=== PATIENT | female | born 1985 | race Caucasian/White ===

== ENCOUNTER 2017-11-01 07:43 | Emergency (ER) | payer MEDICAID ==
--- NOTE | 2017-11-01 07:50 | ED Physician Documentation ---
PD HPI FEMALE - Stated complaint Stated Complaint: 9 WKS PREG/BLEEDING - History obtained from History obtained from: Patient - History of Present Illness Timing - onset: Today Timing - details: Abrupt onset, Still present, Waxing and waning (having some spotting of pink fluid and mild lower abd cramps this morning.) Associated symptoms: Pelvic pain, Vaginal bleeding. No: Fever, Vaginal discharge, Genital sore/lesion, Dysuria, Urinary frequency Contributing factors: (9 weeks by dates). 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 denies: Vomiting, Diarrhea : reports: Vaginal bleeding. denies: Dysuria, Frequency, Discharge Skin: denies: Rash Neurologic: denies: Generalized weakness, Near syncope PD PAST MEDICAL HISTORY - Past Medical History Cardiovascular: None Respiratory: None Neuro: None - Present Medications Home Medications: Ambulatory Orders Medication Instructions Recorded Confirmed Cephalexin [Keflex] 500 mg PO TID #15 capsule 11/01/17 Ondansetron Odt [Zofran] 4 mg TL Q6H PRN #15 tablet 11/01/17 - Allergies Allergies/Adverse Reactions: Allergies Allergy/AdvReac Type Severity Reaction Status Date / Time Penicillins Allergy Unknown Verified 11/01/17 07:49 PD ED PE NORMAL - Vitals Vital signs reviewed: Yes - General General: Alert and oriented X 3, No acute distress, Well developed/nourished - HEENT HEENT: Pharynx benign - Neck Neck: Supple, no meningeal sign, No adenopathy - Cardiac Cardiac: RRR, No murmur - Respiratory Respiratory: Clear bilaterally - Abdomen Abdomen: Normal bowel sounds, Soft, Non distended, No organomegaly, Other (mild suprapubic tenderness) - Female Female : Deferred - Rectal Rectal: Deferred - Back Back: No CVA TTP - Derm Derm: Normal color, Warm and dry - Neuro Neuro: Alert and oriented X 3, No motor deficit, Normal speech Results - Vitals Vitals: Oxygen O2 Source Room air - Labs Labs: Microbiology 11/01/17 07:58 Urine Culture - Final Urine,Clean Catch No growth Laboratory Tests 11/01/17 07:58 Urine Color YELLOW Urine Clarity CLEAR Urine pH 8.0 H Ur Specific [place] 1.010 Urine Protein NEGATIVE Urine Glucose (UA) NEGATIVE Urine Ketones NEGATIVE Urine Occult Blood LARGE H Urine Nitrite NEGATIVE Urine Bilirubin NEGATIVE Urine Urobilinogen 0.2 (NORMAL) Ur Leukocyte Esterase TRACE H Urine RBC 0-5 Urine WBC 0-3 Ur Squamous Epith Cells FEW Squamous Urine Bacteria Few Ur Microscopic Review INDICATED Urine Culture Comments INDICATED Procedures - Bedside sono Bedside sono by EMP: Pelvic transabd US showing IUP with GS 9 weeks size. No free fluid. PD MEDICAL DECISION MAKING - ED course Complexity details: considered differential (IUP verified by bedside U/S with GS size c/w dates. ), d/w patient - Sepsis Event Vital Signs: Oxygen O2 Source Room air Departure - Departure Disposition: 01 Home, Self Care Clinical Impression: Early stage of , Vaginal spotting Condition: Stable Record reviewed to determine appropriate education?: Yes Instructions: Bleeding Early Preg Prescriptions: Cephalexin [Keflex] 500 mg PO TID #15 capsule Ondansetron Odt [Zofran] 4 mg TL Q6H PRN #15 tablet PRN Reason: Nausea / Vomiting Comments: Drink lots of fluids. Your urine is suggestive of a mild bladder infection. Will treat it with some medications pending the culture. If that comes back negative we can discontinue the medication. Tylenol if needed for cramps or pains. Discharge Date/Time: 11/01/17 09:05
[2017-11-01 08:08] LABS: BILIRUBIN,URINE NEGATIVE (NEGATIVE); GLUCOSE, URINE (UA) NEGATIVE (NEGATIVE); KETONES,URINE (UA) NEGATIVE (NEGATIVE); LEUKOCYTE ESTERASE, URINE TRACE (NEGATIVE); NITRITE,URINE NEGATIVE (NEGATIVE); OCCULT BLOOD,URINE LARGE (NEGATIVE); PROTEIN,URINE NEGATIVE (NEGATIVE); UROBILINOGEN,URINE 0.2 (NORMAL) E.U./dL (NORMAL)
[2017-11-01 08:13] LABS: CLARITY,URINE CLEAR (CLEAR)
[2017-11-01 08:21] LABS: BACTERIA,URINE Few /HPF (None Seen); RBC,URINE 0-5 /HPF (0-5); SQUAMOUS EPITHELIAL CELL,UR FEW Squamous (<= Few)
[2017-11-01] MEDS ORDERED: cephALEXin 250 MG CAPSULE PO STA (08:43)
[2017-11-01 09:06] VITALS: BP 132/86
== END 2017-11-01 09:05 | disposition home or self-care (01) ==
LOC: ED 07:43
DX: O26.851 Spotting complicating pregnancy, first trimester (principal); Z3A.09 9 weeks gestation of pregnancy; R11.0 Nausea
CPT/HCPCS: 81001; 87086; 99283; A9270; 81003

== ENCOUNTER 2017-11-04 08:00 | Outpatient (CLI) | payer MEDICAID ==
[2017-11-04 17:51] LABS: MUDS CUTOFF CONCENTRATIONS CUTOFF CONC BELOW:
[2017-11-04 18:19] LABS: AMPHETAMINE SCREEN,URINE NEGATIVE (NEGATIVE); BENZODIAZEPINES SCREEN, URINE NEGATIVE (NEGATIVE); COCAINE SCREEN URINE NEGATIVE (NEGATIVE); METHADONE SCREEN, URINE NEGATIVE (NEGATIVE); METHAMPHETAMINES SCREEN, URINE NEGATIVE (NEGATIVE); OPIATE SCREEN, URINE NEGATIVE (NEGATIVE); OXYCODONE SCREEN, URINE NEGATIVE (NEGATIVE); PROPOXYPHENE SCREEN, URINE NEGATIVE (NEGATIVE); TRICYCLIC ANTIDEPRESSANT,URINE NEGATIVE (NEGATIVE)
== END 2017-11-04 08:01 ==
LOC: LAB.R 08:00
PROVIDERS: ATTEND Nurse Practitioner Obstetrics & Gynecology
DX: Z36.9 Encounter for antenatal screening, unspecified (principal)
CPT/HCPCS: 80306

== ENCOUNTER 2017-11-18 08:00 | Outpatient (CLI) | payer MEDICAID ==
[2017-11-18 12:40] LABS: BASOPHILS % (AUTO) 0.3 %; EOSINOPHILS # (AUTO) 0.1 10^3/uL (0.0-0.7); EOSINOPHILS % (AUTO) 0.9 %; HGB - HEMOGLOBIN 12.6 g/dL (12.0-16.0); LYMPHOCYTES # (AUTO) 1.9 10^3/uL (1.5-3.5); LYMPHOCYTES % (AUTO) 24.3 %; MEAN CORPUSCULAR HGB CONC 32.8 g/dL (32.0-36.0); MEAN CORPUSCULAR VOLUME 88.3 fL (81.0-99.0); MEAN PLATELET VOLUME 8.1 fL (7.9-10.8); MONOCYTES # (AUTO) 0.8 10^3/uL (0.0-1.0); MONOCYTES % (AUTO) 10.6 %; NEUTROPHILS # (AUTO) 4.9 10^3/uL (1.5-6.6); NEUTROPHILS % (AUTO) 63.9 %; PLT - PLATELET COUNT 380 10^3/uL (130-450); RED BLOOD COUNT 4.36 10^6/uL (4.20-5.40); RED CELL DISTRIBUTION WIDTH 13.8 % (12.0-15.0); WHITE BLOOD COUNT 7.7 x10^3/uL (4.8-10.8)
[2017-11-18 13:31] LABS: BILIRUBIN,URINE NEGATIVE (NEGATIVE); GLUCOSE, URINE (UA) NEGATIVE (NEGATIVE); KETONES,URINE (UA) NEGATIVE (NEGATIVE); LEUKOCYTE ESTERASE, URINE NEGATIVE (NEGATIVE); NITRITE,URINE NEGATIVE (NEGATIVE); OCCULT BLOOD,URINE NEGATIVE (NEGATIVE); PH,URINE 5.5 PH (5.0-7.5); PROTEIN,URINE NEGATIVE (NEGATIVE); UROBILINOGEN,URINE 0.2 (NORMAL) E.U./dL (NORMAL)
[2017-11-18 13:35] LABS: CLARITY,URINE CLOUDY (CLEAR)
[2017-11-18 13:51] LABS: BACTERIA,URINE Rare /HPF (None Seen); RBC,URINE 0-5 /HPF (0-5); SQUAMOUS EPITHELIAL CELL,UR FEW Squamous (<= Few)
[2017-11-19 11:26] LABS: HEPATITIS B SURFACE ANTIGEN NON-REACTIVE (NON-REACTIVE); HEPATITIS C ANTIBODY NON-REACTIVE (NON-REACTIVE)
[2017-11-19 14:01] LABS: HIV AG/AB 4TH GEN NON-REACTIVE (NON-REACTIVE)
== END 2017-11-18 08:01 | disposition home or self-care (01) ==
LOC: LAB.N 08:00
PROVIDERS: ATTEND Nurse Practitioner Obstetrics & Gynecology
DX: Z36.9 Encounter for antenatal screening, unspecified (principal)
CPT/HCPCS: 36415; 81001; 81599; 85025; 86592; 86762; 86803; 86850; 86900; 86901; 87340; 87389

== ENCOUNTER 2017-12-03 10:40 | Outpatient (CLI) | payer MEDICAID ==
[2017-12-03 12:44] LABS: HB2 TOTAL 13.1 g/dL; HEMOGLOBIN A1C 0.39 g/dL; HEMOGLOBIN A1C % 4.9 % (4.6-6.2)
== END 2017-12-03 10:41 | disposition home or self-care (01) ==
LOC: LAB.N 10:40
PROVIDERS: ATTEND Registered Nurse
DX: O99.211 Obesity complicating pregnancy, first trimester (principal)
CPT/HCPCS: 36415; 82950; 83036

== ENCOUNTER 2018-02-02 07:30 | Outpatient (CLI) | payer MEDICAID ==
--- NOTE | 2018-02-02 15:50 | Ultrasound Report ---
Reason: ENCOUNTER FOR SCREENING, UNSPECIFIED Procedure Date: 02/02/2018 Accession Number: [id number] / [id number] Procedure: US - OB Detailed Eval CPT Code: FULL RESULT: EXAM: COMPLETE OBSTETRICAL ULTRASOUND EXAM DATE: 02/02/2018 10:50 AM. CLINICAL HISTORY: anatomic survey. COMPARISON: None. TECHNIQUE: Real-time sonographic evaluation of the fetus performed by the manager cafe. Multiple quality assurance representative static images were saved for review. Additional transvaginal imaging to more accurately evaluate cervical length/placental position/etc. DATING: Established EGA 19 weeks 6 days with HAILE 06/23/2018 based on assigned dating. EGA 20 weeks 4 days with HAILE 06/18/2018 based on the current ultrasound. GENERAL EVALUATION Sharif . Cardiac activity: 147 bpm. movement: Visualized. Presentation: Variable Placenta: Anterior position. No evidence for previa. Umbilical cord: 3 vessel cord not well seen Central placental cord origin. Amniotic fluid: 14.4 l. MVP 4.9 cm. BIOMETRY Bi-Parietal Diameter (BPD): 4.7 cm, 20 weeks/2 days Head Circumference (HC): 17.7 cm, 20 weeks/1 days Abdominal Circumference (AC): 16.7 cm, 21 weeks/5 days Femur Length (FL): 3.2 cm, 20 weeks/1 days Estimated Weight: 388 gm, 93 percentile for 19 weeks 6 days ANATOMY The intracranial structures, profile, face/nose/lips, spine, , stomach, abdominal wall and cord insertion, diaphragm, kidneys, bladder, and extremities were visualized and demonstrate no abnormality. The three-vessel cord and cardiac anatomy is not well seen. MATERNAL STRUCTURES Uterus: Anterior 5.2 x 3.5 x 3.5 cm fibroid Cervix: Long and closed. Transabdominal length 4.2 cm. Right ovary/adnexa: Unremarkable. Left ovary/adnexa: Unremarkable. Free fluid: None. IMPRESSION: 1. Sharif live intrauterine with gestational age 19 weeks/6 days based on stated dating. 2. Estimated weight is within expected limits for assigned dating 93rd percentile. 3. Three-vessel cord and cardiac anatomy not well seen. Follow-up in 2-3 weeks . Otherwise unremarkable anatomic survey. 4. Anterior 5.2 x 3.5 x 3.5 cm fibroid RADIA
== END 2018-02-02 07:31 | disposition home or self-care (01) ==
LOC: DI 07:30
PROVIDERS: ATTEND Nurse Practitioner Obstetrics & Gynecology
DX: Z36.9 Encounter for antenatal screening, unspecified (principal); O34.12 Maternal care for benign tumor of corpus uteri, second trimester; D25.9 Leiomyoma of uterus, unspecified; Z3A.19 19 weeks gestation of pregnancy
CPT/HCPCS: 76811

== ENCOUNTER 2018-02-25 10:34 | Outpatient (CLI) | payer MEDICAID ==
[2018-02-25 18:58] LABS: BASOPHILS % (AUTO) 0.4 %; EOSINOPHILS % (AUTO) 0.6 %; HGB - HEMOGLOBIN 12.5 g/dL (12.0-16.0); LYMPHOCYTES # (AUTO) 1.4 10^3/uL (1.5-3.5); LYMPHOCYTES % (AUTO) 17.3 %; MEAN CORPUSCULAR HEMOGLOBIN 28.7 pg (27.0-31.0); MEAN CORPUSCULAR HGB CONC 32.9 g/dL (32.0-36.0); MEAN PLATELET VOLUME 7.9 fL (7.9-10.8); MONOCYTES # (AUTO) 0.4 10^3/uL (0.0-1.0); MONOCYTES % (AUTO) 5.2 %; NEUTROPHILS # (AUTO) 6.3 10^3/uL (1.5-6.6); NEUTROPHILS % (AUTO) 76.5 %; PLT - PLATELET COUNT 393 10^3/uL (130-450); RED BLOOD COUNT 4.38 10^6/uL (4.20-5.40); RED CELL DISTRIBUTION WIDTH 13.9 % (12.0-15.0); WHITE BLOOD COUNT 8.3 x10^3/uL (4.8-10.8)
== END 2018-02-25 10:35 | disposition home or self-care (01) ==
LOC: LAB.WCP 10:34
PROVIDERS: ATTEND Registered Nurse
DX: Z34.82 Encounter for supervision of other normal pregnancy, second trimester (principal)
CPT/HCPCS: 36415; 82950; 85025; 86850

== ENCOUNTER 2018-03-17 12:34 | Outpatient (CLI) | payer MEDICAID ==
--- NOTE | 2018-03-17 15:08 | Ultrasound Report ---
Reason: ENCTR FORE SUPRVSN OF NORMAL , 2ND TRIM Procedure Date: 03/17/2018 Accession Number: [id number] / [id number] Procedure: US - OB F/U or Repeat CPT Code: FULL RESULT: EXAM: COMPLETE OBSTETRICAL ULTRASOUND EXAM DATE: 03/17/2018 01:55 PM. CLINICAL HISTORY: anatomic survey. COMPARISON: OB DETAILED EVAL 02/02/2018 8:51 AM. TECHNIQUE: Real-time sonographic evaluation of the fetus performed by the buffer inflated pad. Multiple agency service representative static images were saved for review. DATING: Established EGA 26 weeks 0 days with HAILE 06/23/2018 based on referring provider input. EGA 26 weeks 5 days with HAILE 06/18/2018 based on prior ultrasound. EGA 27 weeks 2 days with HAILE 06/14/2018 based on the current ultrasound. GENERAL EVALUATION Sharif . Cardiac activity: 142 bpm. movement: Visualized. Presentation: Breech Placenta: Anterior position. No evidence for previa. Umbilical cord: 3 vessel cord. Central placental cord origin. Amniotic fluid: 14.3 QASIM MVP 5.3 cm. BIOMETRY Bi-Parietal Diameter (BPD): 6.8 cm, 27 weeks 4 days Head Circumference (HC): 25.4 cm, 27 weeks 4 days Abdominal Circumference (AC): 22.9 cm, 27 weeks 2 days Femur Length (FL): 5.0 cm, 26 weeks 6 days Estimated Weight: 1038 grams, 85th percentile for 26 weeks 0 days. ANATOMY Completion evaluation of 4 chamber cardiac view, left ventricular outflow tract, right ventricular outflow tract was performed. All structures appear normal. MATERNAL STRUCTURES Cervical length of 4.5 cm. IMPRESSION: 1. Sharif live intrauterine with gestational age 26 weeks 0 days based on established due date. 2. Estimated weight is within expected limits for assigned dating. 3. Normal completion anatomic survey. RADIA
== END 2018-03-17 12:35 | disposition home or self-care (01) ==
LOC: DI 12:34
PROVIDERS: ATTEND Registered Nurse
DX: Z34.82 Encounter for supervision of other normal pregnancy, second trimester (principal)
CPT/HCPCS: 76816

== ENCOUNTER 2018-03-24 08:00 | Outpatient (CLI) | payer MEDICAID | END 2018-03-24 23:59 | disposition home or self-care (01) | LOC: LAB.R 08:00 | PROVIDERS: ATTEND Nurse Practitioner Obstetrics & Gynecology | DX: Z33.1 Pregnant state, incidental (principal) | CPT/HCPCS: 87491; 87591 ==

== ENCOUNTER 2018-05-01 09:02 | Outpatient (CLI) | payer MEDICAID | END 2018-05-01 09:03 | disposition home or self-care (01) | LOC: LAB 09:02 | PROVIDERS: ATTEND Nurse Practitioner Obstetrics & Gynecology | DX: R73.9 Hyperglycemia, unspecified (principal) | CPT/HCPCS: 36415; 82951; 82952 ==

== ENCOUNTER 2018-05-01 13:01 | Outpatient (CLI) | payer MEDICAID ==
--- NOTE | 2018-05-04 10:43 | Ultrasound Report ---
Reason: ENCTR FOR SCREENING FOR MACROSOMIA Procedure Date: 05/01/2018 Accession Number: [id number] / [id number] Procedure: US - OB F/U or Repeat CPT Code: FULL RESULT: EXAM: COMPLETE OBSTETRICAL ULTRASOUND EXAM DATE: 05/01/2018 01:44 PM. CLINICAL HISTORY: screening for macrosomia. COMPARISON: None. TECHNIQUE: Real-time sonographic evaluation of the fetus performed by the counseling director. Multiple international sales representative static images were saved for review. Additional transvaginal imaging to more accurately evaluate cervical length/placental position/etc. DATING: Established EGA 32 weeks 3 days with HAILE 06/23/2018 based on established date of conception. EGA 33 weeks 1 day with HAILE 06/18/2018 based on first ultrasound. EGA 33 weeks 4 days with HAILE 06/15/2018 based on the current ultrasound. GENERAL EVALUATION Sharif . Cardiac activity: 135 bpm. movement: Visualized. Presentation: Cephalic. Placenta: Anterior position. No evidence for previa. Umbilical cord: 3 vessel cord. Central placental cord origin. Amniotic fluid: Normal with an QASIM measuring 12.72 cm MVP 4.28 cm. BIOMETRY Bi-Parietal Diameter (BPD): 8.46 cm, 34 weeks 0 days Head Circumference (HC): 30.67 cm, 34 weeks 1 day Abdominal Circumference (AC): 29.24 cm, 33 weeks 1 day Femur Length (FL): 6.42 cm, 33 weeks 1 day Estimated Weight: 2184 g, 9th percentile for 32 weeks 3 days. IMPRESSION: 1. Sharif live intrauterine with gestational age 32 weeks 3 days based on established date of conception. 2. Estimated weight 2184 g in the 9th percentile. RADIA
== END 2018-05-01 13:02 | disposition home or self-care (01) ==
LOC: DI 13:01
PROVIDERS: ATTEND Obstetrics & Gynecology
DX: Z36.88 Encounter for antenatal screening for fetal macrosomia (principal); Z3A.32 32 weeks gestation of pregnancy; R73.9 Hyperglycemia, unspecified
CPT/HCPCS: 36415; 76816; 82951; 82952

== ENCOUNTER 2018-05-08 11:22 | Outpatient (CLI) | payer MEDICAID ==
--- NOTE | 2018-05-08 13:35 | Ultrasound Report ---
Reason: ENCOUNTER FOR SCREENING FOR GROWTH Procedure Date: 05/08/2018 Accession Number: [id number] / [id number] Procedure: US - OB Biophysical Profile CPT Code: FULL RESULT: EXAM: BIOPHYSICAL PROFILE EXAM DATE: 05/08/2018 12:13 PM. CLINICAL HISTORY: ENCOUNTER FOR SCREENING FOR GROWTH. COMPARISON: None. TECHNIQUE: Real-time sonographic evaluation of the fetus performed by the religion professor. Multiple senior outside sales representative static images were saved for review. DATING: Established EGA 33 weeks 3 days with HAILE 06/23/2018. GENERAL EVALUATION Sharif . Cardiac activity: 135 bpm. movement: Present Presentation: Cephalic Placenta: Anterior position. No evidence for previa or abruption. Amniotic fluid: Normal. QASIM 15.9 cm. MVP 5.1 cm. BIOPHYSICAL PROFILE Breathing = 2 Movement = 2 Tone = 2 Amniotic Fluid = 2 Total 8/8 Umbilical CORD SD ratio 2.8, within normal limits. IMPRESSION: 1. Sharif intrauterine with gestational age 33 weeks 3 days based on 06/23/2018. 2. Biophysical profile score 8 of 8. 3. Umbilical CORD SD ratio 2.8, within normal limits. RADIA
[2018-05-08 15:21] LABS: BASOPHILS % (AUTO) 0.3 %; EOSINOPHILS % (AUTO) 0.2 %; HGB - HEMOGLOBIN 12.3 g/dL (12.0-16.0); LYMPHOCYTES # (AUTO) 1.3 10^3/uL (1.5-3.5); LYMPHOCYTES % (AUTO) 11.9 %; MEAN CORPUSCULAR HEMOGLOBIN 28.6 pg (27.0-31.0); MEAN CORPUSCULAR HGB CONC 34.3 g/dL (32.0-36.0); MEAN CORPUSCULAR VOLUME 83.5 fL (81.0-99.0); MEAN PLATELET VOLUME 7.5 fL (7.9-10.8); MONOCYTES # (AUTO) 0.6 10^3/uL (0.0-1.0); MONOCYTES % (AUTO) 5.7 %; NEUTROPHILS # (AUTO) 8.8 10^3/uL (1.5-6.6); NEUTROPHILS % (AUTO) 81.9 %; PLT - PLATELET COUNT 355 10^3/uL (130-450); RED BLOOD COUNT 4.28 10^6/uL (4.20-5.40); RED CELL DISTRIBUTION WIDTH 13.4 % (12.0-15.0); WHITE BLOOD COUNT 10.8 x10^3/uL (4.8-10.8)
[2018-05-08 15:36] LABS: CREATININE 0.5 mg/dL (0.4-1.0)
[2018-05-08 15:46] VITALS: BP 131/65
[2018-05-08 15:51] LABS: URIC ACID 3.7 mg/dL (2.6-7.2)
[2018-05-08 15:52] LABS: CREATININE,URINE 91.2 mg/dL; PROTEIN/CREATININE RATIO,URINE 0.1 (<=0.2)
--- NOTE | 2018-05-12 15:33 | Labor Flowsheet ---
Labor Flowsheet Datetime Report Generated by CPN: 05/12/2018 15:33 Datetime: 05/12/2018 15:29 Pulse: 91 SpO2 (%): 99 Datetime: 05/12/2018 15:20 VITAL SIGNS NBP Sys/[place]/Mean (mmHg): 123 : 75 : 87
== END 2018-05-08 15:15 | disposition home or self-care (01) ==
LOC: DI 11:22 → FBP 13:31 → DI 15:15
PROVIDERS: ATTEND Registered Nurse
DX: Z36.4 Encounter for antenatal screening for fetal growth retardation (principal); R03.0 Elevated blood-pressure reading, without diagnosis of hypertension
CPT/HCPCS: 36415; 59025; 76819; 82565; 82570; 83615; 84156; 84450; 84550; 85025; 85384

== ENCOUNTER 2018-05-29 08:00 | Outpatient (CLI) | payer MEDICAID | END 2018-05-29 23:59 | disposition home or self-care (01) | LOC: LAB.R 08:00 | PROVIDERS: ATTEND Nurse Practitioner Obstetrics & Gynecology | DX: Z36.85 Encounter for antenatal screening for Streptococcus B (principal); Z36.89 Encounter for other specified antenatal screening | CPT/HCPCS: 87081; 87491; 87591; 87797 ==

== ENCOUNTER 2018-05-29 09:56 | Outpatient (CLI) | payer MEDICAID ==
[2018-05-29 10:30] VITALS: BP 116/49
[2018-05-30 12:21] LABS: HIV AG/AB 4TH GEN NON-REACTIVE (NON-REACTIVE)
[2018-05-30 13:26] LABS: HEPATITIS C ANTIBODY NON-REACTIVE (NON-REACTIVE)
[2018-06-02 14:50] LABS: HSV 2 IGG TYPE SPECIFIC AB <0.90 index
== END 2018-05-29 10:50 | disposition home or self-care (01) ==
LOC: WFO 09:56 → FBP 09:58 → WFO 10:50
PROVIDERS: ATTEND Nurse Practitioner Obstetrics & Gynecology
DX: O36.8130 Decreased fetal movements, third trimester, not applicable or unspecified (principal); Z3A.36 36 weeks gestation of pregnancy; Z36.85 Encounter for antenatal screening for Streptococcus B; Z36.89 Encounter for other specified antenatal screening
CPT/HCPCS: 36415; 59025; 81599; 86695; 86696; 86803; 87081; 87181; 87389; 87491; 87591; 87797

== ENCOUNTER 2018-06-09 10:56 | Outpatient (CLI) | payer MEDICAID ==
--- NOTE | 2018-06-09 15:33 | Ultrasound Report ---
Reason: UTERINE SIZE DATE DISCREPANCY ,UNSPECIFIE Procedure Date: 06/09/2018 Accession Number: [id number] / [id number] Procedure: US - OB F/U or Repeat CPT Code: FULL RESULT: EXAM: FOLLOW-UP OBSTETRICAL ULTRASOUND EXAM DATE: 06/09/2018 11:20 AM. CLINICAL HISTORY: Uterine size date discrepancy , unspecified. COMPARISON: OB F/U OR REPEAT 05/01/2018 1:44 PM OB DETAILED EVAL 02/02/2018 8:51 AM. TECHNIQUE: Real-time sonographic evaluation of the fetus performed by the store team member. Multiple cash applications representative static images were saved for review. DATING: Established EGA 38 weeks 0 days with HAILE 06/23/2018 based on berry grower. EGA 39 weeks 1 day with HAILE 06/15/2018 based on the current ultrasound. GENERAL EVALUATION Sharif . Cardiac activity: 135 bpm. movement: Visualized. Presentation: Cephalic. Placenta: Anterior position. Amniotic fluid: Normal. QASIM 18.7 cm. MVP 5.5 cm. BIOMETRY Bi-Parietal Diameter (BPD): 9.4 cm, 38 weeks 5 days Head Circumference (HC): 34.5 cm, 40 weeks 0 days Abdominal Circumference (AC): 35.6 cm, 39 weeks 4 days Femur Length (FL): 7.5 cm, 38 weeks 3 days Estimated Weight: 2723 g, 87 percentile for 28 weeks 0 days. IMPRESSION: 1. Sharif live intrauterine with gestational age 28 weeks 0 days based on berry grower. 2. Estimated weight is within expected limits for assigned dating. 3. Normal interval growth compared to 05/01/2018. RADIA
== END 2018-06-09 10:57 | disposition home or self-care (01) ==
LOC: DI 10:56
PROVIDERS: ATTEND Registered Nurse
DX: O26.849 Uterine size-date discrepancy, unspecified trimester (principal); Z3A.28 28 weeks gestation of pregnancy
CPT/HCPCS: 76816

== ENCOUNTER 2018-06-12 11:20 | Outpatient (CLI) | payer MEDICAID ==
[2018-06-12 12:05] LABS: BASOPHILS % (AUTO) 0.2 %; EOSINOPHILS % (AUTO) 0.5 %; HGB - HEMOGLOBIN 12.6 g/dL (12.0-16.0); LYMPHOCYTES # (AUTO) 1.3 10^3/uL (1.5-3.5); LYMPHOCYTES % (AUTO) 15.4 %; MEAN CORPUSCULAR HEMOGLOBIN 28.2 pg (27.0-31.0); MEAN CORPUSCULAR HGB CONC 33.7 g/dL (32.0-36.0); MEAN CORPUSCULAR VOLUME 83.9 fL (81.0-99.0); MEAN PLATELET VOLUME 8.3 fL (7.9-10.8); MONOCYTES # (AUTO) 0.8 10^3/uL (0.0-1.0); MONOCYTES % (AUTO) 9.2 %; NEUTROPHILS # (AUTO) 6.2 10^3/uL (1.5-6.6); NEUTROPHILS % (AUTO) 74.7 %; PLT - PLATELET COUNT 364 10^3/uL (130-450); RED BLOOD COUNT 4.46 10^6/uL (4.20-5.40); RED CELL DISTRIBUTION WIDTH 13.9 % (12.0-15.0); WHITE BLOOD COUNT 8.3 x10^3/uL (4.8-10.8)
[2018-06-12 12:10] LABS: CREATININE,URINE 113.3 mg/dL; PROTEIN/CREATININE RATIO,URINE 0.1 (<=0.2)
[2018-06-12 12:20] VITALS: BP 132/74
--- NOTE | 2018-06-13 05:26 | Labor Flowsheet ---
Labor Flowsheet Datetime Report Generated by CPN: 06/13/2018 05:26 Datetime: 06/12/2018 12:07 VITAL SIGNS NBP Sys/[place]/Mean (mmHg): 126 : 88 : 96 Pulse: 100 Datetime: 06/12/2018 11:38 SpO2 (%): 100
--- NOTE | 2018-06-14 11:16 | PROCEDURE REPORT ---
Hospitalist Procedure Note - Procedure Note Procedure Note: 06/12/2018: Gestational HTN: NST reactive, baseline 130s, moderate variability, + accels, no decels PIH labs WNL Pt denies PIH s/sx Reviewed PIH warning s/sx and pt released home with precautions secondary to inability to begin cervical ripening process in anticipation for IOL due to nursing unit staffing concerns. She is to return to the until tomorrow for NST and BP check and if unit staff permits, will begin pre-induction cervical ripening at that time. Pt verbalized understanding and agrees to above plan. She denies further questions or concerns at this time.
--- NOTE | 2018-06-14 11:21 | PROCEDURE REPORT ---
Hospitalist Procedure Note - Procedure Note Procedure Note: 06/13/2018 NST Gestational HTN NST reactive, baseline 135s, moderate variability, + accels, no decels BP moderately elevated 130s/90s Pt denies PIH s/sx Pt released home secondary to nursing staffing concerns and instructed to return at 2000 this evening (06/13/18) for pre-induction cervical ripening in anticipation for IOL secondary to diagnosis of gestational HTN.
== END 2018-06-12 12:35 | disposition home or self-care (01) ==
LOC: WFO 11:20 → FBP 11:21 → WFO 12:35
PROVIDERS: ATTEND Nurse Practitioner Obstetrics & Gynecology
DX: O13.9 Gestational [pregnancy-induced] hypertension without significant proteinuria, unspecified trimester (principal); Z3A.00 Weeks of gestation of pregnancy not specified
CPT/HCPCS: 36415; 59025; 82570; 83615; 84156; 84450; 84550; 85025

== ENCOUNTER 2018-06-13 14:00 | Outpatient (CLI) | payer MEDICAID ==
[2018-06-13 14:30] VITALS: BP 135/98
== END 2018-06-13 14:40 | disposition home or self-care (01) ==
LOC: FBP 14:00 → WFO 14:00
PROVIDERS: ATTEND Nurse Practitioner Obstetrics & Gynecology
DX: O13.9 Gestational [pregnancy-induced] hypertension without significant proteinuria, unspecified trimester (principal); Z3A.00 Weeks of gestation of pregnancy not specified
CPT/HCPCS: 59025

== ENCOUNTER 2018-06-13 20:13 | Inpatient (IN) | payer MEDICAID ==
[2018-06-13] MEDS ORDERED: SODIUM CHLORIDE FLUSH 0.9% 10 ML SYRINGE IVP PRN (20:33)
[2018-06-13] MEDS ORDERED: ZOLPIDEM 5 MG TABLET PO PRN (20:43)
[2018-06-13 21:18] LABS: BASOPHILS % (AUTO) 0.5 %; EOSINOPHILS % (AUTO) 0.3 %; LYMPHOCYTES # (AUTO) 1.7 10^3/uL (1.5-3.5); LYMPHOCYTES % (AUTO) 18.9 %; MEAN CORPUSCULAR HEMOGLOBIN 27.7 pg (27.0-31.0); MEAN CORPUSCULAR HGB CONC 32.9 g/dL (32.0-36.0); MEAN CORPUSCULAR VOLUME 84.3 fL (81.0-99.0); MEAN PLATELET VOLUME 8.3 fL (7.9-10.8); MONOCYTES # (AUTO) 0.7 10^3/uL (0.0-1.0); MONOCYTES % (AUTO) 7.7 %; NEUTROPHILS # (AUTO) 6.5 10^3/uL (1.5-6.6); NEUTROPHILS % (AUTO) 72.6 %; PLT - PLATELET COUNT 356 10^3/uL (130-450); RED BLOOD COUNT 4.34 10^6/uL (4.20-5.40); RED CELL DISTRIBUTION WIDTH 13.8 % (12.0-15.0)
[2018-06-13] MEDS: miSOPROStol 100 MCG TABLET BC SCH (21:40)
[2018-06-13 22:22] LABS: BILIRUBIN,URINE NEGATIVE (NEGATIVE); GLUCOSE, URINE (UA) NEGATIVE (NEGATIVE); KETONES,URINE (UA) TRACE mg/dL (NEGATIVE); LEUKOCYTE ESTERASE, URINE NEGATIVE (NEGATIVE); NITRITE,URINE NEGATIVE (NEGATIVE); OCCULT BLOOD,URINE NEGATIVE (NEGATIVE); PROTEIN,URINE TRACE mg/dL (NEGATIVE); UROBILINOGEN,URINE 1 (NORMAL) E.U./dL (NORMAL)
[2018-06-13 22:32] LABS: BACTERIA,URINE None Seen /HPF (None Seen); CLARITY,URINE CLEAR (CLEAR); RBC,URINE None Seen /HPF (0-5); SQUAMOUS EPITHELIAL CELL,UR MANY Squamous (<= Few)
[2018-06-14] MEDS: miSOPROStol 100 MCG TABLET BC SCH ×2 (01:47→05:49)
[2018-06-14] MEDS: SODIUM CHLORIDE FLUSH 0.9% 10 ML SYRINGE IVP SCH ×3 (07:15→23:25)
--- NOTE | 2018-06-14 07:44 | HISTORY & PHYSICAL EXAMINATION ---
Admit History - Visit Reason Visit Reason: Other - : 2 Parity: 1 Premature: 0 Ectopic: 0 : 0 Care: positive: [facility] Risk/History: positive: None Complications This : positive: None Smoking Status: Former smoker - Mother's Labs Mother's Blood Type: positive: A Mother's RH: positive: Negative GBS: positive: Group B Strep Positive Rubella Status: positive: Immune Meds/Allgy - Home Medications Home Medications: Ambulatory Orders Medication Instructions Recorded Confirmed Cephalexin [Keflex] 500 mg PO TID #15 capsule 11/01/17 Ondansetron Odt [Zofran] 4 mg TL Q6H PRN #15 tablet 11/01/17 - Allergies Allergies/Adverse Reactions: Allergies Allergy/AdvReac Type Severity Reaction Status Date / Time Penicillins Allergy Unknown Verified 11/01/17 07:49 Review of Systems - Constitutional Constitutional: denies: Fever, Chills, Malaise - Eyes Eyes: denies: Blurred vision, Spots in vision, Dipolpia - Cardiovascular Cariovascular: denies: Chest pain, Edema - Respiratory Respiratory: denies: Cough, Sputum production, Wheezing, Hemoptysis, SOB at rest, SOB with exertion - Gastrointestinal Gastrointestinal: denies: Abdominal pain, Constipation, Diarrhea, Nausea, Vomiting - Genitourinary Genitourinary: denies: Dysuria, Urgency, Hematuria - Integumentary Integumentary: denies: Rash, Pruritis - Psychiatric Psychiatric: denies: Depression, Anxiety Physical - Abdominal Exam Vital Signs: BP 122/74 Contraction Frequency (min/apart): 1-7 Contraction Intensity: positive: Mild Uterine Resting Tone: positive: Soft - Monitoring Heart Rate Baseline: 125 Strip Review: positive: Category I - Presentation Presentation: positive: Vertex - Vaginal Exam Membranes: positive: Membranes intact Dilation (in cm): closed Effacement (%): thick Station: positive: -3 - Speculum Exam Speculum Exam Performed: positive: No Plan for Labor - Plan For Labor I expect patient to be DC'd or transferred within 96 hours.: Yes
[2018-06-14 07:54] LABS: BASOPHILS % (AUTO) 0.2 %; EOSINOPHILS # (AUTO) 0.1 10^3/uL (0.0-0.7); EOSINOPHILS % (AUTO) 0.7 %; HGB - HEMOGLOBIN 12.2 g/dL (12.0-16.0); LYMPHOCYTES # (AUTO) 1.7 10^3/uL (1.5-3.5); LYMPHOCYTES % (AUTO) 20.1 %; MEAN CORPUSCULAR HEMOGLOBIN 28.2 pg (27.0-31.0); MEAN CORPUSCULAR HGB CONC 33.8 g/dL (32.0-36.0); MEAN CORPUSCULAR VOLUME 83.5 fL (81.0-99.0); MEAN PLATELET VOLUME 8.1 fL (7.9-10.8); MONOCYTES # (AUTO) 0.8 10^3/uL (0.0-1.0); MONOCYTES % (AUTO) 9.9 %; NEUTROPHILS # (AUTO) 5.7 10^3/uL (1.5-6.6); NEUTROPHILS % (AUTO) 69.1 %; PLT - PLATELET COUNT 345 10^3/uL (130-450); RED BLOOD COUNT 4.34 10^6/uL (4.20-5.40); RED CELL DISTRIBUTION WIDTH 13.7 % (12.0-15.0); WHITE BLOOD COUNT 8.3 x10^3/uL (4.8-10.8)
[2018-06-14 08:06] LABS: URIC ACID 4.3 mg/dL (2.6-7.2)
[2018-06-14] MEDS ORDERED: LACTATED RINGERS 1,000 ML IV ONE ×5 (08:14→10:48)
[2018-06-14] MEDS ORDERED: CITRIC ACID/SODIUM CITRATE 15 ML UDC PO ONE ×2 (08:19→08:30)
[2018-06-14] MEDS: LACTATED RINGERS 1,000 ML IV ONE ×2 (08:20→09:21)
[2018-06-14] MEDS ORDERED: ceFAZolin 1 GM VIAL IV ONE (09:00)
[2018-06-14] MEDS ORDERED: OXYTOCIN 10 UNIT/ML VIAL IV ONE (09:00)
[2018-06-14] MEDS ORDERED: ePHEDrine 50 MG/ML VIAL IVP ONE (09:00)
--- NOTE | 2018-06-14 09:38 | ANESTHESIA ---
Pre-Anesthesia VS, & Labs - Diagnosis Non reassuring heart rate - Procedure Emergency C section Height 5 ft 2 in Weight (kg) 112.037 kg Body Mass Index 39.3 - NPO Other (Water recently) - Is Patient ?: Yes - Lab Results Current Lab Results: Laboratory Tests 06/14/18 07:49: Lactate Dehydrogenase 91 06/14/18 07:49: Uric Acid 4.3, AST 15 06/14/18 07:49: WBC 8.3, RBC 4.34, Hgb 12.2, Hct 36.2 L, MCV 83.5, MCH 28.2, MCHC 33.8, RDW 13.7, Plt Count 345, MPV 8.1, Neut # (Auto) 5.7, Lymph # (Auto) 1.7, Trigg # (Auto) 0.8, Eos # (Auto) 0.1, Baso # (Auto) 0.0, Absolute Nucleated RBC 0.00, Nucleated RBC % 0.0 06/13/18 21:10: WBC 9.0, RBC 4.34, Hgb 12.0, Hct 36.6 L, MCV 84.3, MCH 27.7, MCHC 32.9, RDW 13.8, Plt Count 356, MPV 8.3, Neut # (Auto) 6.5, Lymph # (Auto) 1.7, Trigg # (Auto) 0.7, Eos # (Auto) 0.0, Baso # (Auto) 0.0, Absolute Nucleated RBC 0.00, Nucleated RBC % 0.0 Lab results reviewed: Yes Fish Bones: 06/14/18 07:49 Home Medications and Allergies Active Medications Misoprostol (Cytotec) 50 mcg BC Q4HR [facility] Last Admin: 06/14/18 05:49 Dose: 50 mcg Sodium Chloride (Normal Saline Flush 0.9%) 10 ml IVP 0100,0900,1700 [facility] Last Admin: 06/14/18 07:15 Dose: Not Given Sodium Chloride (Normal Saline Flush 0.9%) 10 ml IVP PRN PRN PRN Reason: NEEDED PER PROVIDER ORDERS Last Admin: 06/14/18 05:52 Dose: 10 ml Zolpidem Tartrate (Ambien) 10 mg PO QPM PRN PRN Reason: Insomnia Last Admin: 06/13/18 22:49 Dose: 10 mg Allergies/Adverse Reactions: Allergies Allergy/AdvReac Type Severity Reaction Status Date / Time Penicillins Allergy Unknown Verified 11/01/17 07:49 Anes History & Medical History - Anesthetic History Anesthesia Complications: reports: No previous complications Family history of Anesthesia Complications: Denies Family history of Malignant Hyperthermia: Denies - Medical History Cardiovascular: reports: None Pulmonary: reports: None Gastrointestinal: reports: None Urinary: reports: None Neuro: reports: None Musculoskeletal: reports: None Endocrine/Autoimmune: reports: None Blood Disorders: reports: None Smoking Status: Former smoker Psychosocial: reports: No issues indicated - Obstetrical History : 2 Parity: 1 Events: positive: None Complications: positive: None Exam General: Alert Dental: WNL Mouth Opening: Greater than 4 Fingerbreadths Neck Mobility: Normal Mallampati classification: II Thyromental Distance: greater than 6 cm Mental/Cognitive Status: Alert/Oriented X3 Cognitive Status: Within normal limits Plan Anesthesia Type: Spinal Consent for Procedure(s) Verified and Reviewed: Yes Code Status: Attempt Resuscitation ASA classification: 2-Mild systemic disease Is this case an emergency?: Yes
[2018-06-14] MEDS ORDERED: SODIUM CHLORIDE FLUSH 0.9% 10 ML SYRINGE IVP PRN (10:16)
[2018-06-14] MEDS ORDERED: ONDANSETRON 4 MG/2 ML VIAL IVP PRN (10:16)
[2018-06-14] MEDS ORDERED: diphenhydrAMINE 25 MG CAPSULE PO PRN (10:16)
[2018-06-14] MEDS ORDERED: KETOROLAC 30 MG/ML VIAL ONE (10:45)
[2018-06-14] MEDS ORDERED: OXYTOCIN/SODIUM CHLORIDE 500 ML IV ONE (10:48)
--- NOTE | 2018-06-14 10:54 | HISTORY & PHYSICAL EXAMINATION ---
Admit History - Smoking Status: Former smoker Meds/Allgy - Home Medications Home Medications: Ambulatory Orders Medication Instructions Recorded Confirmed Cephalexin [Keflex] 500 mg PO TID #15 capsule 11/01/17 Ondansetron Odt [Zofran] 4 mg TL Q6H PRN #15 tablet 11/01/17 - Allergies Allergies/Adverse Reactions: Allergies Allergy/AdvReac Type Severity Reaction Status Date / Time Penicillins Allergy Unknown Verified 11/01/17 07:49 Physical - Abdominal Exam Vital Signs: Temp Pulse Resp BP Pulse Ox 36.4 C L 87 16 115/59 L 100 06/14/18 10:45 06/14/18 10:45 06/14/18 10:45 06/14/18 10:45 06/14/18 10:45 Plan for Labor - Plan For Labor Plan for Labor: HPI: This 22yo 38.5wks gestation by LMP=7.0wk U/S presented at 2000 on 06/13/2018 for pre-induction cervical ripening with misoprostol in anticipation for induction of labor secondary to gestational HTN. She denies VB, Lof, or contractions. Reports +FM. She denies concerns or complaints at this time other than intermittent situational anxiety understandably. She has received regular care at [facility] in the care of the midwifery service through the duration of her . Her has been complicated by her elevated BMI which was 46.65 at her last visit and she had an anesthesia consultation 05/08/2018 as a result. Her 1 hour GTT was close to the cut off range for being elevated and her thus a 3 hour GTT was ordered and encouraged and the results were WNL, although again close to the cut off range for being abnormal. She is Rh negative and she received Rhogam in her early third trimester 03/24/2018. At 29 weeks gestation she was measuring significantly size larger than dates and subsequently a growth ultrasound was ordered. The results of that ultrasound which was performed 05/01/2018 were reported as growth in the 9th percentile, however biometry is suggestive of 34 wk measurements and patient is 32 wks gestation. EFW 2184g which is also suggestive of a fetus that is >60% at minimum. 05/08/2018 f/u U/S WNL, BPP 8/8, Umbilical cord SD ratio 2.8, WNL. At this time it was clear that the fetus was inappropriately reported as being in the 9th percentile for growth, and this is confirmed by repeat growth and QASIM ultrasound performed 06/09/2018 which measured EFW 2723g and 87th percentile. The patient's blood pressure started to become elevated at 37wks gestation and the diagnosis of gestational HTN was made at her 38.3wk routine OB visit. Her PIH labs were WNL at that time and there was noted to be a trace amount of protein in her urine. An induction of labor was delayed secondary to [facility] nursing staff concerns and she was scheduled to return in 24 hours for repeat NST and serial BP monitoring which revealed reactive NST and BPs moderately el evated and she was scheduled to return at 2000 rather than begin her preinduction cervical ripening process secondary to nursing staffing concerns. Upon her arrival to [facility] she was noted to have Category I FHR tracing with baseline 125s, moderate variability, + accels, and no decelerations. She was placed in observation status and Misoprostol 50mcg BC q 4 hours 3 doses were administered. Dating criteria: LMP 08/22/2017 First ultrasound: @ 7wks gestation - agrees OB History: G1: 02/28/2008 @ 38wks, , male, epidural, 3 hr labor. PMHx: Anxiety, asthma, fibroids, headaches/migraines PSHx: none Social Hx: Never smoker, No ETOH or IVDA. UTOX +THC - pt denies use since positive test. Ravi. Family Hx: Migraines - mother; Alcoholism - father; Heart disease - maternal grandmother; Melanoma - maternal grandfather; Liver cancer - paternal grandfather labs: Blood type A negative Antibody negative Rubella immune HIV negative Hep C neg RPR neg Hep B neg Utox + THC Pap 11/04/2018 negative, GC/CT neg 28wk Labs: 1 hour GTT 138 Hgb 12.5 Antibody negative 3hour GTT: 95, 174, 153, 141 05/08/2018 PIH Labs: LDH 83 Creatinine: 0.5 Hgb 12.3, Hct 35.8, PLT 355 Uric acid 3.7 Pr/Cr ratio 0.1 36wk Labs: *GBS POSITIVE GC/CT negative HIV neg Hep C neg RPR non-reactive HSV-1 pos HSV-2 neg Ultrasounds: 03/17/18 FAS WNL. Anterior placenta, no previa. 3VC 05/01/2018 indicated for size>dates: QASIM 12.7. Reported as growth in the 9th percentile, however biometry is suggestive of 34 wk measurements and patient is 32 wks gestation. EFW 214g which is also suggestive of a fetus that is >60% at minimum. 05/08/2018 f/u U/S and BPP: Cephalic presentation, placenta anterior with no evidence of previa or abruption. QASIM 15.9. BPP 8/8, Umbilical cord SD ratio 2.8, WNL. Atruamatic, normocephalic Obese Heart RRR w/o M/G/R Lungs CTAB, Abdomen gravid, soft and nontender. Bilateral LE's no edema Mood is good.
[2018-06-14] MEDS: LACTATED RINGERS 1,000 ML IV SCH ×2 (11:00→18:31)
[2018-06-14] MEDS ORDERED: OXYTOCIN/SODIUM CHLORIDE 500 ML IV PRN (11:00)
[2018-06-14] MEDS: KETOROLAC 30 MG/ML VIAL IV SCH ×3 (11:00→23:17)
--- NOTE | 2018-06-14 11:08 | PROVIDER PROGRESS NOTE ---
Subjective - Subjective Subjective: Immediately after leaving the patient's room I was phoned to the bedside by the RN. She informed that the patient had recently been up to use the bathroom and upon her return to bed her FHR was difficult to trace. Maternal heart rate was >100bpm and heart rate was tracing in the 70s for approximately 5 minutes. The heart rate was difficult to trace secondary to maternal body habitus. When accurate tracing was achieved the FHR was tracing in 70s. Patient was repositioned, IV fluid bolus started, and O2 applied without recovery. SVE 1/thick/unengaged with intact membranes. No presented cord identified and head was very high out of maternal pelvis. A STAT delivery was called, Dr. Raymond notified, compounding and finishing supervisor notified and OR team mobilized. 2 minutes following OR staff mobilization the heart rate began to recover with a gradual return to baseline in the 140s with minimal variability. supervisor shrimp pond contacted and instructed to contact all staff to inform them of the change in urgency to a Category II delivery. Upon dr. Raymond's arrival to the unit he was informed of the patient's situation, her hx, her current medications, her GBS positive status, and this prolonged late deceleration with slow return to baseline. This incident of prolonged deceleration in combination with her SVE 1/thick/unengaged, the decision was made to proceed with a delivery. The patient was appropriately informed of this decision and care was handed off to Dr. Raymond, carton forming machine tender physician. Objective - Vital Signs/Intake & Output Vital Signs: Vital Signs x48h Temp Pulse Resp BP Pulse Ox 06/14/18 10:45 36.4 C L 87 16 115/59 L 100 06/14/18 10:39 36.4 C L 92 16 111/79 100 06/14/18 10:35 36.4 C L 86 16 116/68 100 06/14/18 10:31 36.4 C L 87 16 116/68 100 06/14/18 10:26 36 C L 91 16 111/72 100 06/14/18 10:20 36 C L 83 15 127/62 100 06/14/18 10:16 36 C L 80 14 127/75 100 06/14/18 10:10 36 C L 82 14 141/83 H 99 Intake & Output: Intake & Output 0206/12/18 06/13/18 06/14/18 23:59 23:59 23:59 23:59 Intake Total 500 Balance 500 - Lab Results Fish Bones: 06/14/18 07:49 Other Labs: Lab Results x24hrs 06/14/18 06/14/18 06/14/18 Range/Units 07:49 07:49 07:49 WBC 8.3 (4.8-10.8) x10^3/uL RBC 4.34 (4.20-5.40) 10^6/uL Hgb 12.2 (12.0-16.0) g/dL Hct 36.2 L (37.0-47.0) % MCV 83.5 (81.0-99.0) fL MCH 28.2 (27.0-31.0) pg MCHC 33.8 (32.0-36.0) g/dL RDW 13.7 (12.0-15.0) % Plt Count 345 (130-450) 10^3/uL MPV 8.1 (7.9-10.8) fL Neut # (Auto) 5.7 (1.5-6.6) 10^3/uL Lymph # (Auto) 1.7 (1.5-3.5) 10^3/uL [place] # (Auto) 0.8 (0.0-1.0) 10^3/uL Eos # (Auto) 0.1 (0.0-0.7) 10^3/uL Baso # (Auto) 0.0 (0.0-0.1) 10^3/uL Absolute Nucleated RBC 0.00 x10^3/uL Nucleated RBC % 0.0 /100WBC Uric Acid 4.3 (2.6-7.2) mg/dL AST 15 (10-42) IU/L Lactate Dehydrogenase 91 (91-225) IU/L Urine Color Urine Clarity (CLEAR) Urine pH (5.0-7.5) PH Ur Specific [place] (1.002-1.030) Urine Protein (NEGATIVE) mg/dL Urine Glucose (UA) (NEGATIVE) mg/dL Urine Ketones (NEGATIVE) mg/dL Urine Occult Blood (NEGATIVE) Urine Nitrite (NEGATIVE) Urine Bilirubin (NEGATIVE) Urine Urobilinogen (NORMAL) E.U./dL Ur Leukocyte Esterase (NEGATIVE) Urine RBC (0-5) /HPF Urine WBC (0-5) /HPF Ur Squamous Epith Cells (<= Few) Urine Bacteria (None Seen) /HPF 06/13/18 06/13/18 Range/Units 21:11 21:10 WBC 9.0 (4.8-10.8) x10^3/uL RBC 4.34 (4.20-5.40) 10^6/uL Hgb 12.0 (12.0-16.0) g/dL Hct 36.6 L (37.0-47.0) % MCV 84.3 (81.0-99.0) fL MCH 27.7 (27.0-31.0) pg MCHC 32.9 (32.0-36.0) g/dL RDW 13.8 (12.0-15.0) % Plt Count 356 (130-450) 10^3/uL MPV 8.3 (7.9-10.8) fL Neut # (Auto) 6.5 (1.5-6.6) 10^3/uL Lymph # (Auto) 1.7 (1.5-3.5) 10^3/uL [place] # (Auto) 0.7 (0.0-1.0) 10^3/uL Eos # (Auto) 0.0 (0.0-0.7) 10^3/uL Baso # (Auto) 0.0 (0.0-0.1) 10^3/uL Absolute Nucleated RBC 0.00 x10^3/uL Nucleated RBC % 0.0 /100WBC Uric Acid (2.6-7.2) mg/dL AST (10-42) IU/L Lactate Dehydrogenase (91-225) IU/L Urine Color YELLOW Urine Clarity CLEAR (CLEAR) Urine pH 6.0 (5.0-7.5) PH Ur Specific [place] >=1.030 H (1.002-1.030) Urine Protein TRACE (NEGATIVE) mg/dL Urine Glucose (UA) NEGATIVE (NEGATIVE) mg/dL Urine Ketones TRACE (NEGATIVE) mg/dL Urine Occult Blood NEGATIVE (NEGATIVE) Urine Nitrite NEGATIVE (NEGATIVE) Urine Bilirubin NEGATIVE (NEGATIVE) Urine Urobilinogen 1 (NORMAL) (NORMAL) E.U./dL Ur Leukocyte Esterase NEGATIVE (NEGATIVE) Urine RBC None Seen (0-5) /HPF Urine WBC 0-3 (0-5) /HPF Ur Squamous Epith Cells MANY Squamous H (<= Few) Urine Bacteria None Seen (None Seen) /HPF
[2018-06-14] MEDS: ACETAMINOPHEN 500 MG TABLET PO SCH ×3 (11:28→23:21)
[2018-06-14 12:09] LABS: CREATININE,URINE 181.1 mg/dL; PROTEIN/CREATININE RATIO,URINE 0.1 (<=0.2)
[2018-06-14] MEDS: oxyCODONE 5 MG TABLET PO PRN ×2 (16:51→21:33)
[2018-06-14] MEDS: SIMETHICONE CHEW 80 MG TABLET PO SCH ×2 (16:51→21:34)
[2018-06-14] MEDS ORDERED: SODIUM CHLORIDE FLUSH 0.9% 10 ML SYRINGE IVP SCH (17:00)
[2018-06-14] MEDS: DOCUSATE SODIUM 100 MG CAPSULE PO SCH (23:17)
[2018-06-15] MEDS: oxyCODONE 5 MG TABLET PO PRN ×5 (01:12→20:19)
[2018-06-15] MEDS: LACTATED RINGERS 1,000 ML IV SCH (04:19)
[2018-06-15] MEDS ORDERED: LACTATED RINGERS 1,000 ML IV ONE (04:22)
[2018-06-15] MEDS: ACETAMINOPHEN 500 MG TABLET PO SCH ×3 (05:04→17:50)
[2018-06-15] MEDS: KETOROLAC 30 MG/ML VIAL IV SCH (05:04)
[2018-06-15 06:05] LABS: BASOPHILS % (AUTO) 0.3 %; EOSINOPHILS % (AUTO) 0.6 %; HGB - HEMOGLOBIN 10.1 g/dL (12.0-16.0); LYMPHOCYTES # (AUTO) 1.5 10^3/uL (1.5-3.5); LYMPHOCYTES % (AUTO) 18.2 %; MEAN CORPUSCULAR HEMOGLOBIN 29.6 pg (27.0-31.0); MEAN CORPUSCULAR HGB CONC 34.7 g/dL (32.0-36.0); MEAN CORPUSCULAR VOLUME 85.3 fL (81.0-99.0); MEAN PLATELET VOLUME 7.9 fL (7.9-10.8); MONOCYTES # (AUTO) 0.8 10^3/uL (0.0-1.0); MONOCYTES % (AUTO) 10.1 %; NEUTROPHILS # (AUTO) 5.9 10^3/uL (1.5-6.6); NEUTROPHILS % (AUTO) 70.8 %; PLT - PLATELET COUNT 286 10^3/uL (130-450); RED BLOOD COUNT 3.42 10^6/uL (4.20-5.40); RED CELL DISTRIBUTION WIDTH 13.8 % (12.0-15.0); WHITE BLOOD COUNT 8.3 x10^3/uL (4.8-10.8)
--- NOTE | 2018-06-15 08:58 | PROVIDER PROGRESS NOTE ---
Subjective - General Admit Date: 06/14/18 Procedure Date: 06/14/18 Post Op Days: 1 Procedure Performed: emergency PLTC/S - Review of Systems Wound/Incisions: positive: Dressing dry and intact (Wound Vac) General: positive: No symptoms, Fever Cardiovascular: positive: No symptoms Gastrointestinal: positive: No symptoms, Abdominal pain (08/28. notes adiquit pain control) Objective - Patient Data Reviewed Vital Signs: Yes Vital Signs: Vital Signs x48h Temp Pulse Resp BP Pulse Ox 06/15/18 07:47 36.7 C 87 18 113/47 L 99 06/15/18 05:00 36.8 C 83 16 112/59 L 100 Weight: Weight 06/13/18 06/14/18 06/15/18 23:59 23:59 23:59 Weight (kg) 112.037 kg Intake & Output: Intake and Output Totals x24h 06/13/18 06/14/18 06/15/18 23:59 23:59 23:59 Intake Total 5635.667 1760 Output Total 1630 900 Balance 4005.667 860 - Lab Results Lab Results: 06/15/18 05:52 Other Lab Results: Lab Results x24hrs 06/15/18 06/15/18 06/14/18 Range/Units 05:52 05:52 08:10 WBC 8.3 (4.8-10.8) x10^3/uL RBC 3.42 L (4.20-5.40) 10^6/uL Hgb 10.1 L (12.0-16.0) g/dL Hct 29.1 L (37.0-47.0) % MCV 85.3 (81.0-99.0) fL MCH 29.6 (27.0-31.0) pg MCHC 34.7 (32.0-36.0) g/dL RDW 13.8 (12.0-15.0) % Plt Count 286 (130-450) 10^3/uL MPV 7.9 (7.9-10.8) fL Neut # (Auto) 5.9 (1.5-6.6) 10^3/uL Lymph # (Auto) 1.5 (1.5-3.5) 10^3/uL [place] # (Auto) 0.8 (0.0-1.0) 10^3/uL Eos # (Auto) 0.0 (0.0-0.7) 10^3/uL Baso # (Auto) 0.0 (0.0-0.1) 10^3/uL Absolute Nucleated RBC 0.00 x10^3/uL Nucleated RBC % 0.0 /100WBC Urine Creatinine 181.1 mg/dL Ur Total Protein Timed 12 mg/dL Protein/Creatinin Ratio 0.1 (<=0.2) Blood Type A NEGATIVE Weak D (Du) WEAK-D NEGATIVE Maternal Bleed NEGATIVE (NEGATIVE) - Current Medications Current Medications: Current Medications Generic Name Dose Route Start Last Admin Trade Name Freq PRN Reason Stop Dose Admin Acetaminophen 1,000 mg 06/14/18 12:00 06/15/18 05:04 Tylenol PO 1,000 mg Q6HR RO Administration Docusate Sodium 100 mg 06/14/18 22:00 06/14/18 23:17 Colace 100mg Capsule PO 100 mg BID RO Administration Lactated Ringer's 1,000 mls @ 100 mls/hr 06/14/18 11:00 06/15/18 04:19 Lr IV 100 mls/hr .Q10H RO Administration Oxytocin/Sodium Chloride 500 mls @ 50 mls/hr 06/14/18 11:00 06/14/18 21:11 Pitocin/Sodium Chloride IV Infused PRN PRN Infusion POST- HEMORR PREVENTION 50 MILLIUNIT/MIN Oxycodone HCl 10 mg 06/14/18 13:58 06/15/18 05:03 Roxicodone PO 10 mg Q4HR PRN Administration Abdominal Pain Simethicone 80 mg 06/14/18 14:00 06/14/18 21:34 Mylicon PO 80 mg TID RO Administration Sodium Chloride 10 ml 06/14/18 01:00 06/14/18 23:25 Normal Saline Flush 0.9% IVP Not Given 0100,0900,1700 [facility] - Physical Exam Wound/Incisions: positive: Dressing dry and intact General Appearance: positive: No acute distress (sitting up breast feeding), Alert Respiratory: positive: Chest non-tender, No respiratory distress, Breath sounds nml Cardiovascular: positive: Regular rate & rhythm, No murmur, No gallop Abdomen: positive: Nml bowel sounds Extremities: positive: Pedal edema (3 +). negative: Calf tenderness, Lc's sign/cords Neurologic/Psychiatric: positive: Oriented x3 Impression/Plan - Problem List Problem List: POD #1 Progressing well
[2018-06-15] MEDS: POLYETHYLENE GLYCOL 3350 17 GM PACKET PO PRN (09:37)
[2018-06-15] MEDS: SIMETHICONE CHEW 80 MG TABLET PO SCH ×3 (09:37→17:50)
[2018-06-15] MEDS: DOCUSATE SODIUM 100 MG CAPSULE PO SCH ×2 (09:38→20:23)
[2018-06-15] MEDS ORDERED: RHO(D) IMMUNE GLOBULIN 300 MCG SYRINGE IVP ONE (09:49)
--- NOTE | 2018-06-15 09:55 | OPERATIVE REPORT ---
DATE OF SERVICE: 06/14/2018 Physician: Pino Raymond MD PREOPERATIVE DIAGNOSES 1. Deep prolonged deceleration. 2. A 33-year-old G2, P1 female who presents for induction. POSTOPERATIVE DIAGNOSES 1. Deep prolonged deceleration. 2. A 33-year-old G2, P1 female who presents for induction. 3. Cord which is down by the head, occult prolapsed. PROCEDURE PERFORMED: Emergency low transverse section. SURGEON: Pino Raymond MD. PIER MASTER ASSISTANT: BIANCA Barrow, JEANNA ANESTHESIA: Spinal with Valerio Rees CRNA. ESTIMATED BLOOD LOSS: 1000 mL OPERATIVE DESCRIPTION: The patient was taken to the operating room in an expeditious fashion because of good heart tones. A spinal was accomplished. She was then prepped and draped in the usual fashion. A roll was placed under the right hip. A Pfannenstiel incision was carried down through subcutaneous tissue to the fascia. The fascia was incised transversely and then it was both bluntly and sharply dissected from the rectus abdominis. The peritoneum was then entered high to avoid injury to bowel or bladder. At this point, a bladder flap was developed using both blunt and sharp dissection. A low transverse uterine incision was accomplished using a #10 blade and bandage scissors. Upon entering the uterine cavity, the cord was encountered in coils at the level of the incision. This was below the baby's ear. The infant was felt to be in the right occiput transverse position. The umbilical cord started to come out. The head of the infant was lifted out of the pelvis and then delivered. The oropharynx was bulb suctioned. The remainder of the infant was delivered without difficulty. The cord was doubly clamped and divided. At this point, a vigorous infant was handed to the nursery team that was standing by. Cord blood samples were obtained. At this point, the uterus exteriorized. The uterus was wrapped in a moist lap and the placenta was then delivered. The anterior portion of the uterus was cleansed with a dry lap. The cervix was dilated with a ring forceps. The incision was closed with running locking suture of 0 Vicryl with an imbricating layer of 0 Vicryl. There was a [id number] placed in the midline because of some oozing. The incision was inspected. No further bleeding was noted. At this point, the cul-de-sac was suctioned clear of clot and then the estimated blood loss was made. The cul-de-sac was irrigated. The uterus was delivered back into the abdominal cavity. The gutters were likewise delivered. The peritoneum was closed using 2-0 Vicryl. The rectus was inspected for bleeding, none was noted. It was then reapproximated with 2-0 Vicryl. The fascia was closed using looped 0 PDS in a running suture. Following this, the subcutaneous tissue was irrigated. There were some minimal skin bleeders noted. Phillip's was then closed utilizing 2-0 Vicryl. The incision itself was closed using 4-0 Monocryl subcuticular and the wound was then dressed with a wound VAC. Care was taken to ensure that there was a good vacuum. The patient tolerated the procedure well. Sponge and needle counts were correct. TD: 06/15/2018 09:02 AAMIR
[2018-06-15] MEDS: IBUPROFEN 800 MG TABLET PO SCH ×2 (11:29→17:50)
[2018-06-16] MEDS: oxyCODONE 5 MG TABLET PO PRN ×3 (02:18→12:28)
[2018-06-16] MEDS: IBUPROFEN 800 MG TABLET PO SCH ×2 (06:31→12:27)
[2018-06-16] MEDS: ACETAMINOPHEN 500 MG TABLET PO SCH ×2 (06:31→12:27)
[2018-06-16] MEDS: DOCUSATE SODIUM 100 MG CAPSULE PO SCH (08:19)
[2018-06-16] MEDS: POLYETHYLENE GLYCOL 3350 17 GM PACKET PO PRN (08:19)
[2018-06-16] MEDS: SIMETHICONE CHEW 80 MG TABLET PO SCH ×2 (08:19→12:26)
--- NOTE | 2018-06-16 08:41 | PROVIDER PROGRESS NOTE ---
Subjective - General Admit Date: 06/14/18 Procedure Date: 06/14/18 Post Op Days: 2 Procedure Performed: emergency PLTC/S - Review of Systems Wound/Incisions: positive: Dressing dry and intact (wound Vac working well) General: positive: No symptoms (Pain 6/10. just took her Oxycodone.). negative: Fever Cardiovascular: positive: No symptoms Gastrointestinal: positive: No symptoms, [place] Psychiatric: positive: No symptoms Objective - Patient Data Reviewed Vital Signs: Yes Vital Signs: Vital Signs x48h Temp Pulse Resp BP Pulse Ox 06/16/18 05:00 37 C 83 16 129/65 99 Intake & Output: Intake and Output Totals x24h 06/14/18 06/15/18 06/16/18 23:59 23:59 23:59 Intake Total 5635.667 2828.333 500 Output Total 1630 1650 Balance 4005.667 1178.333 500 - Lab Results Lab Results: 06/15/18 05:52 - Current Medications Current Medications: Current Medications Generic Name Dose Route Start Last Admin Trade Name Freq PRN Reason Stop Dose Admin Acetaminophen 1,000 mg 06/14/18 12:00 06/16/18 06:31 Tylenol PO 1,000 mg Q6HR RO Administration Docusate Sodium 100 mg 06/14/18 22:00 06/16/18 08:19 Colace 100mg Capsule PO 100 mg BID RO Administration Lactated Ringer's 1,000 mls @ 100 mls/hr 06/14/18 11:00 06/15/18 08:30 Lr IV 0 mls/hr .Q10H RO Infusion Oxytocin/Sodium Chloride 500 mls @ 50 mls/hr 06/14/18 11:00 06/14/18 21:11 Pitocin/Sodium Chloride IV Infused PRN PRN Infusion POST- HEMORR PREVENTION 50 MILLIUNIT/MIN Ibuprofen 800 mg 06/15/18 11:00 06/16/18 06:31 Motrin PO 800 mg Q6H RO Administration Oxycodone HCl 5 mg 06/14/18 13:57 06/16/18 02:18 Roxicodone PO 5 mg Q4HR PRN Administration Mild Pain Oxycodone HCl 10 mg 06/14/18 13:58 06/16/18 08:20 Roxicodone PO 10 mg Q4HR PRN Administration Abdominal Pain Polyethylene Glycol 17 gm 06/14/18 21:24 06/16/18 08:19 Miralax PO 17 gm DAILY PRN Administration Bowel Protocol Simethicone 80 mg 06/14/18 14:00 06/16/18 08:19 Mylicon PO 80 mg TID RO Administration Sodium Chloride 10 ml 06/14/18 01:00 06/14/18 23:25 Normal Saline Flush 0.9% IVP Not Given 0100,0900,1700 RO - Physical Exam Wound/Incisions: positive: Dressing dry and intact, No drainage Respiratory: positive: Chest non-tender, No respiratory distress, Breath sounds nml Cardiovascular: positive: Regular rate & rhythm, No murmur, No gallop Abdomen: positive: Nml bowel sounds, No distention, Mass (uterus) Extremities: negative: Calf tenderness, Lc's sign/cords Neurologic/Psychiatric: positive: Oriented x3 Impression/Plan - Problem List Problem List: POD/PPD #2 progressing well Baby not latching well will Discharge to room in. Discharge Meds Oxycodone 5 mg # 30 Motrin 800 mg Colace 100 mg Reviewed breast feeding, Mastitis. TRC for Wound Vac removal
--- NOTE | 2018-06-16 08:45 | Discharge Plan ---
Discharge Plan Disposition: 01 Home, Self Care Condition: Good Diet: Regular Activity Restrictions: No Restrictions Shower Restrictions: No Driving Restrictions: Yes (Donot drive while on Oxycodone.) No Smoking: If you smoke, Please STOP! Call for help.
[2018-06-16 12:36] VITALS: BP 118/56
--- NOTE | 2018-06-16 13:44 | Labor Flowsheet ---
Labor Flowsheet Datetime Report Generated by CPN: 06/16/2018 13:44 Datetime: 06/16/2018 11:44 VITAL SIGNS NBP Sys/[place]/Mean (mmHg): 118 : 56 : 68 Pulse: 88 LaborFlag: Labor Datetime: 06/16/2018 06:38 SpO2 (%): 99 Datetime: 06/14/2018 08:38 UTERINE ACTIVITY Monitor Mode: External Frequency (min): none Resting Tone (Palpate): Relaxed ASSESSMENT A Monitor Mode: Telemetry FHR Baseline Rate : 135 Variability: Minimal - Undetectable to <=5 bpm Accelerations: None Decelerations: None Category: Category II Comments: To the OR, now category II Oxygen Amount (LPM): 10 Oxygen Method: Non-Rebreather Datetime: 06/14/2018 08:25 Communication Comments: consent signed Datetime: 06/14/2018 08:20 Monitor Interventions for FHR: Ultrasound Adjusted Actions for Decelerations: Side to Side; Oxygen Applied; IV Bolus; Sterile Vaginal Exam; Prov ider Notified Datetime: 06/14/2018 08:12 VAGINAL EXAM Dilatation (cm): 1.0 Exam by: Kaya Alejandre CNM Vaginal Bleeding: None Cervix, Position: Posterior Vaginal Exam Comments: High Datetime: 06/14/2018 08:09 PATIENT CARE IV/Blood Work: IV Bolus Started Patient Care Comments: O2 at 10 L/nonrebreather mask Datetime: 06/14/2018 08:05 COMMUNICATION Communication: Call/Page Placed to Provider Datetime: 06/14/2018 08:01 Patient Position/Activity: Left Lateral Datetime: 06/14/2018 07:58 Monitor Interventions for UA: [place] Adjusted Quality: Mild Duration (sec): 50-80 Datetime: 06/14/2018 07:57 I/O Interventions: Up to BR Datetime: 06/14/2018 07:29 Provider Reviewed Strip: Yes Notification Reason: Status Update; Labor Status; Uterine Activity; Pain; Lab/Diagnostic Study Datetime: 06/14/2018 06:45 Pattern: Tachysystole: > 5 Contractions in 10 Minutes Membrane Comments: Patient dozing and states she can feel the tightening but no pain. Datetime: 06/14/2018 06:01 Contraction Comments: patient asleep Datetime: 06/14/2018 06:00 Respirations: 16 Temperature (C): 37.0 Datetime: 06/14/2018 05:58 Cervical Ripening Agents: Cytotec @ Datetime: 06/14/2018 00:10 Comfort Measures: Patient asleep Datetime: 06/13/2018 22:52 MEDICATIONS Analgesics/Sedatives: Ambien (mg) @ 10 Datetime: 06/13/2018 21:30 Stage of : Labor Datetime: 06/13/2018 20:58 Temperature Route: Oral
--- NOTE | 2018-06-24 12:42 | DISCHARGE SUMMARY ---
Physician: Pino Raymond MD DATE OF ADMISSION: 06/14/2018 DATE OF DISCHARGE: 06/16/2018 ADMITTING DIAGNOSES 1. Term cyesis. 2. Suspected small for gestational age. 3. Gestational hypertension. 4. A negative. 5. Group B streptococcus positive. DISCHARGE DIAGNOSES 1. Term cyesis. 2. Suspected small for gestational age. 3. Gestational hypertension. 4. A negative. 5. Group B streptococcus positive. 6. Occult prolapsed cord. PROCEDURE 1. Cervical ripening. 2. Stat emergency low transverse section. PRESENTING HISTORY: The patient is a 33-year-old G2, P1 female who was 38.5 weeks by early dating criteria. She had a due date determined to be 06/13/2018. She was noted to have elevated blood pressures; however, her labs were unremarkable. She had a normal 1-hour GTT, but since it was close to the range they administered a 3-hour GTT, which was also within normal limits. Because of the gestational hypertension and concerns about blood pressures, it was decided to do an induction at 38.5 weeks. LABORATORIES: CBC on admission showed a hemoglobin of 12.0, white count was 9.0, her platelets were 365. Postop, her hemoglobin reached a carrie of 10.1. Her platelets remained stable at 286. Her white count remained normal. Her uric acid was noted to be 4.3, AST was 15, LDH was 91. Her protein creatinine ratio was 0.1. HOSPITAL COURSE: The patient was admitted and had cervical ripening accomplished. However, on the evening of the at roughly 10 o'clock, she developed a prolonged 10 min bradycardia down to the 70s. She slowly responded to IV hydration, position change, as well as O2. However, because her cervix was still thick and closed and unengaged, it was decided to proceed on to section. At time of section, the infant was noted to have a cord down by the head. In fact, upon entering the uterine cavity, the cord was encountered at that time. The section, otherwise, was unremarkable. A live with good Apgars was delivered. Her course was unremarkable. Her diet was advanced. Her pressures remained within the normal limits. She remained afebrile. She was discharged to home on the second day postop. She was instructed to follow up in the clinic. DISCHARGE MEDICATIONS Those of: 1. Oxycodone 5 mg #30. 2. Motrin 800 mg 3. Colace 100 mg. TD: 06/24/2018 11:47 MTDD
== END 2018-06-16 13:30 | disposition home or self-care (01) | DRG 788 ==
LOC: WFO 20:13 → FBP 20:15 → WFO 20:45 → OBSVTOIN 06-14 10:16
PROVIDERS: ADMIT Obstetrics & Gynecology; ATTEND Obstetrics & Gynecology
PROC: 10D00Z1 Extraction of Products of Conception, Low, Open Approach (ICD-10-PCS; principal; 2018-06-14 08:45)
DX: O13.4 Gestational [pregnancy-induced] hypertension without significant proteinuria, complicating childbirth (principal); O76 Abnormality in fetal heart rate and rhythm complicating labor and delivery; O69.0XX0 Labor and delivery complicated by prolapse of cord, not applicable or unspecified; O99.214 Obesity complicating childbirth; O99.824 Streptococcus B carrier state complicating childbirth; O75.89 Other specified complications of labor and delivery; Z67.11 Type A blood, Rh negative; Z3A.38 38 weeks gestation of pregnancy; Z37.0 Single live birth; Z87.891 Personal history of nicotine dependence
CPT/HCPCS: 36415; 59025; 81001; 82570; 83033; 83615; 84156; 84450; 84550; 85025; 86900; 86901; A9270; G0378; G0379; J7120

== ENCOUNTER 2018-12-07 10:52 | Outpatient (CLI) | payer MEDICAID ==
[2018-12-07 12:13] LABS: T4 (THYROXINE) 6.91 ug/dL (6.09-12.23)
[2018-12-07 12:16] LABS: THYROID STIMULATING HORMONE 1.51 uIU/mL (0.34-5.60)
== END 2018-12-07 10:53 | disposition home or self-care (01) ==
LOC: LAB 10:52
PROVIDERS: ATTEND Nurse Practitioner Obstetrics & Gynecology
DX: F41.8 Other specified anxiety disorders (principal)
CPT/HCPCS: 36415; 84436; 84443

== ENCOUNTER 2019-12-15 18:48 | Outpatient (CLI) | payer MEDICAID ==
--- NOTE | 2019-12-16 17:27 | Ultrasound Report ---
PROCEDURE: Pelvic w/Transvaginal INDICATIONS: UTERINE FIBROIDS TECHNIQUE: Real-time scanning was performed of the pelvic organs, with image documentation. Additional endovagi nal scanning was necessary due to incomplete visualization of the adnexal and endometrial structures by transabdominal scanning. COMPARISON: 05/30/2018, 05/08/2018, 05/01/2018 FINDINGS: Transabdominal scanning: Limited scanning through the kidneys shows no hydronephrosis. No pathologi c free abdominal or pelvic fluid. Endovaginal scanning: Uterus: Uterus is normal in size at 9.4 x 4.1 x 5.5 cm. Within the mid posterior aspect of the uter us there is a focus of heterotopic echogenicity measuring 29 x 24 x 23 mm. It is noted on prior OB ul trasound 02/02/2018, there is a question of a fibroid. This is not visualized on current exam. Appear ance could have been franchise sales representative of contraction. The endometrium measures 5 mm in combined thickne ss. Multiple nabothian cysts are noted. Ovaries: Right ovary measures 41 x 18 x 31 mm. Left ovary measures 25 x 18 x 22 mm. Arterial Doppler flow are identified. IMPRESSION: 1. Uterine fibroid as above. 2. Previously questioned anterior fibroid seen on prior OB ultrasound is not visualized. This could h ave represented a prior contraction. Reviewed by: Marie Gonzalez MD on 12/16/2019 5:25 PM PDT Approved by: Marie Gonzalez MD on 12/16/2019 5:25 PM PDT Station ID: [id number]
== END 2019-12-15 18:49 | disposition home or self-care (01) ==
LOC: DI 18:48
PROVIDERS: ATTEND Advanced Practice Midwife
DX: D25.9 Leiomyoma of uterus, unspecified (principal)
CPT/HCPCS: 76830; 76856

== ENCOUNTER 2020-04-22 11:26 | Emergency (ER) | payer MEDICAID ==
[2020-04-22 12:02] LABS: BILIRUBIN,URINE NEGATIVE (NEGATIVE); GLUCOSE, URINE (UA) NEGATIVE (NEGATIVE); KETONES,URINE (UA) NEGATIVE (NEGATIVE); LEUKOCYTE ESTERASE, URINE NEGATIVE (NEGATIVE); NITRITE,URINE NEGATIVE (NEGATIVE); OCCULT BLOOD,URINE LARGE (NEGATIVE); PROTEIN,URINE NEGATIVE (NEGATIVE); UROBILINOGEN,URINE 0.2 (NORMAL) E.U./dL (NORMAL)
[2020-04-22 12:03] LABS: CLARITY,URINE HAZY (CLEAR)
[2020-04-22] MEDS ORDERED: MAG HYDROX/AL HYDROX/SIMETH 30 ML UDC PO STA (12:08)
[2020-04-22] MEDS ORDERED: LIDOCAINE VISCOUS 2% 15 ML UDC MM STA (12:08)
--- NOTE | 2020-04-22 12:12 | ED Physician Documentation ---
PD HPI ABD PAIN - Stated complaint Stated Complaint: ABD PX - Chief complaint Chief Complaint: Abd Pain - History obtained from History obtained from: Patient - Additional information Additional information: Otherwise healthy 35-year-old woman has had upper abdominal pain radiating to the back and left shoulder for the last 3 days. It is worse after eating, does not seem to matter what she eats. She had a similar episode maybe 9 years ago, diagnosed with gastritis. No nausea. No changes in bowel movements. No weight loss. Only abdominal surgery was a . Review of Systems Ten Systems: 10 systems reviewed and negative Constitutional: denies: Fever, Chills Nose: reports: Reviewed and negative Throat: reports: Reviewed and negative Cardiac: reports: Reviewed and negative Respiratory: reports: Reviewed and negative PD PAST MEDICAL HISTORY - Past Medical History Cardiovascular: None Respiratory: None Neuro: None Endocrine/Autoimmune: None GI: None : None Musculoskeletal: None - Present Medications Home Medications: Ambulatory Orders Medication Instructions Recorded Confirmed Omeprazole 40 mg PO DAILY #30 capsule. 04/22/20 - Allergies Allergies/Adverse Reactions: Allergies Allergy/AdvReac Type Severity Reaction Status Date / Time Penicillins Allergy Unknown Verified 04/22/20 11:42 - Social History Does the pt smoke?: No Smoking Status: Former smoker PD ED PE NORMAL - Vitals Vital signs reviewed: Yes - General General: Alert and oriented X 3, No acute distress - HEENT HEENT: PERRL, EOMI - Neck Neck: Supple, no meningeal sign, No bony TTP - Cardiac Cardiac: RRR, No murmur - Respiratory Respiratory: No respiratory distress, Clear bilaterally - Abdomen Abdomen: Normal bowel sounds, Soft, Non tender - Back Back: No CVA TTP, No spinal TTP - Derm Derm: Normal color, Warm and dry - Extremities Extremities: No edema, No calf tenderness / cord - Neuro Neuro: Alert and oriented X 3, Normal speech Results - Vitals Vitals: Vital Signs - 24 hr 04/22/20 04/22/20 04/22/20 11:42 12:25 13:39 Temperature 36.2 C L 36.5 C 36.5 C Heart Rate 103 H 98 90 Respiratory 18 16 16 Rate Blood Pressure 145/104 H 140/90 H 130/88 H O2 Saturation 100 100 100 Oxygen O2 Source Room air - Labs Labs: Laboratory Tests 04/22/20 04/22/20 04/22/20 11:51 11:51 12:48 WBC 7.8 RBC 4.79 Hgb 13.7 Hct 42.3 MCV 88.3 MCH 28.6 MCHC 32.4 RDW 13.6 Plt Count 372 MPV 9.5 Neut # (Auto) 5.2 Lymph # (Auto) 1.8 Bollinger # (Auto) 0.6 Eos # (Auto) 0.1 Baso # (Auto) 0.0 Absolute Nucleated RBC 0.00 Nucleated RBC % 0.0 Sodium Potassium Chloride Carbon Dioxide Anion Gap BUN Creatinine Estimated GFR (MDRD) Glucose Calcium Total Bilirubin AST ALT Alkaline Phosphatase Total Protein Albumin Globulin Albumin/Globulin Ratio Lipase Urine Color YELLOW Urine Clarity HAZY Urine pH 6.0 Ur Specific Yawkey 1.010 Urine Protein NEGATIVE Urine Glucose (UA) NEGATIVE Urine Ketones NEGATIVE Urine Occult Blood LARGE H Urine Nitrite NEGATIVE Urine Bilirubin NEGATIVE Urine Urobilinogen 0.2 (NORMAL) Ur Leukocyte Esterase NEGATIVE Urine RBC 0-5 Urine WBC 0-3 Ur Squamous Epith Cells FEW Squamous Urine Bacteria None Seen Ur Microscopic Review INDICATED Urine Culture Comments NOT INDICATED Urine HCG, Qual NEGATIVE 04/22/20 12:48 WBC RBC Hgb Hct MCV MCH MCHC RDW Plt Count MPV Neut # (Auto) Lymph # (Auto) Bollinger # (Auto) Eos # (Auto) Baso # (Auto) Absolute Nucleated RBC Nucleated RBC % Sodium 141 Potassium 3.6 Chloride 102 Carbon Dioxide 28 Anion Gap 11.0 BUN 12 Creatinine 0.6 Estimated GFR (MDRD) 114 Glucose 104 H Calcium 9.3 Total Bilirubin 0.3 AST 16 ALT 19 Alkaline Phosphatase 45 Total Protein 7.2 Albumin 4.3 Globulin 2.9 Albumin/Globulin Ratio 1.5 Lipase 32 Urine Color Urine Clarity Urine pH Ur Specific Y[place]key Urine Protein Urine Glucose (UA) Urine Ketones Urine Occult Blood Urine Nitrite Urine Bilirubin Urine Urobilinogen Ur Leukocyte Esterase Urine RBC Urine WBC Ur Squamous Epith Cells Urine Bacteria Ur Microscopic Review Urine Culture Comments Urine HCG, Qual PD MEDICAL DECISION MAKING - ED course ED course: She presents with upper abdominal pain, most consistent with gastritis. She did have relief with a GI cocktail. Ultrasound of the gallbladder shows fatty liver but otherwise negative. Departure - Departure Disposition: 01 Home, Self Care Clinical Impression: Gastritis Qualifiers: Gastritis type: unspecified gastritis Chronicity: acute Gastritis bleeding: without bleeding Qualified Code(s): K29.00 - Acute gastritis without bleeding Condition: Good Record reviewed to determine appropriate education?: Yes Instructions: ED Gastritis Prescriptions: Omeprazole 40 mg PO DAILY #30 capsule. Comments: Return for new or worsening symptoms. If symptoms do not go away with the medication after few days, follow-up with your doctor and consider referral for upper endoscopy. Discharge Date/Time: 04/22/20 13:39
[2020-04-22 12:23] LABS: BACTERIA,URINE None Seen /HPF (None Seen); RBC,URINE 0-5 /HPF (0-5); SQUAMOUS EPITHELIAL CELL,UR FEW Squamous (<= Few)
[2020-04-22 12:59] LABS: BASOPHILS % (AUTO) 0.4 %; EOSINOPHILS # (AUTO) 0.1 10^3/uL (0.0-0.7); EOSINOPHILS % (AUTO) 0.8 %; HGB - HEMOGLOBIN 13.7 g/dL (12.0-16.0); LYMPHOCYTES # (AUTO) 1.8 10^3/uL (1.5-3.5); LYMPHOCYTES % (AUTO) 23.2 %; MEAN CORPUSCULAR HEMOGLOBIN 28.6 pg (27.0-31.0); MEAN CORPUSCULAR HGB CONC 32.4 g/dL (32.0-36.0); MEAN CORPUSCULAR VOLUME 88.3 fL (81.0-99.0); MEAN PLATELET VOLUME 9.5 fL (7.9-10.8); MONOCYTES # (AUTO) 0.6 10^3/uL (0.0-1.0); MONOCYTES % (AUTO) 8.3 %; NEUTROPHILS # (AUTO) 5.2 10^3/uL (1.5-6.6); PLT - PLATELET COUNT 372 10^3/uL (130-450); RED BLOOD COUNT 4.79 10^6/uL (4.20-5.40); RED CELL DISTRIBUTION WIDTH 13.6 % (12.0-15.0); WHITE BLOOD COUNT 7.8 x10^3/uL (4.8-10.8)
--- NOTE | 2020-04-22 13:00 | Ultrasound Report ---
PROCEDURE: Abdomen Limited INDICATIONS: upper abd pain TECHNIQUE: Real-time focused scanning was performed of the abdomen, with image documentation. COMPARISON: None FINDINGS: The liver demonstrates mildly increased size. The liver demonstrates increased echogenicit y, which limits ultrasound sensitivity for detection of masses. No gallstones or sludge can be seen. The gallbladder wall does not appear thickened. There is no spec ific pericholecystic fluid. The sonographic Shields's sign is negative. No biliary ductal dilatation is seen. The common bile duct measures 5 mm. The visualized pancreas is within normal limits. The visualized right kidney is unremarkable. IMPRESSION: The gallbladder demonstrates a normal sonographic appearance. No biliary dilatation is seen. Mildly enlarged, fatty liver. Note: Concordant preliminary findings given by the reaming machine operator upon the completion of the examination to Dr. Jorge at 12:50 PM on 04/22/2019. Reviewed by: Benji Zhang MD on 04/22/2020 11:59 AM [facility] Approved by: Benji Zhang MD on 04/22/2020 11:59 AM [facility] Station ID: [id number]
[2020-04-22 13:07] LABS: ALBUMIN 4.3 g/dL (3.2-5.5); ALBUMIN/GLOBULIN RATIO 1.5 (1.0-2.2); BILIRUBIN,TOTAL 0.3 mg/dL (0.2-1.0); CALCIUM 9.3 mg/dL (8.5-10.3); CREATININE 0.6 mg/dL (0.4-1.0); TOTAL PROTEIN 7.2 g/dL (6.7-8.2)
[2020-04-22 13:24] LABS: HCG UR QUAL NEGATIVE
[2020-04-22 13:40] VITALS: BP 130/88
== END 2020-04-22 13:39 | disposition home or self-care (01) ==
LOC: ED 11:26
DX: K29.00 Acute gastritis without bleeding (principal); K76.0 Fatty (change of) liver, not elsewhere classified; Z87.891 Personal history of nicotine dependence
CPT/HCPCS: 36415; 76705; 80053; 81001; 81025; 83690; 85025; 99283; 99284; A9270; 81003; 87086

== ENCOUNTER 2020-06-13 20:02 | Emergency (ER) | payer MEDICAID ==
[2020-06-13] MEDS ORDERED: PROPARACAINE 0.5% OPHTH DROPS 15 ML LEFTEYE STA (21:07)
--- NOTE | 2020-06-13 21:07 | ED Physician Documentation ---
PD HPI OPHTHO - Stated complaint Stated Complaint: LT EYE IRRITATION - Chief complaint Chief Complaint: Heent - History obtained from History obtained from: Patient - History of Present Illness Timing - onset: Today Timing - details: Abrupt onset Pain level now: 0 Location: Left Quality / character: Aching Associated symptoms: Redness, Tearing. No: FB sensation Contributing factors: Blunt trauma Recently seen: Not recently seen - Additional information Additional information: when applying mascara this morning, she slipped and the tip of the mascara brush struck her left eye. She has had irritation, redness, and tearing since then. Denies change in vision, denies marco pain. Does not wear contact lenses nor glasses. Review of Systems Eyes: reports: Irritation. denies: Loss of vision, Decreased vision, Photophobia, Discharge (tearing) PD PAST MEDICAL HISTORY - Past Medical History Past Medical History: No Cardiovascular: None Respiratory: None Neuro: None Endocrine/Autoimmune: None GI: None : None Musculoskeletal: None - Past Surgical History Past Surgical History: No - Present Medications Home Medications: Ambulatory Orders Medication Instructions Recorded Confirmed No Known Home Medications 06/13/20 06/13/20 - Allergies Allergies/Adverse Reactions: Allergies Allergy/AdvReac Type Severity Reaction Status Date / Time Penicillins Allergy Unknown Verified 06/13/20 20:05 - Social History Does the pt smoke?: No Smoking Status: Never smoker Does the pt drink ETOH?: No Does the pt have substance abuse?: No - Immunizations Immunizations are current?: Yes - POLST Patient has POLST: No PD ED PE NORMAL - Vitals Vital signs reviewed: Yes - General General: Alert and oriented X 3, No acute distress, Well developed/nourished PD ED PE EXPANDED - Eyes Eyes: PERRL, EOMI, Normal eyelids, Injected conj/sclera (mild, left ), Anterior chambers clear. No: No eyelid FB (everted), Eyelid embedded FB, Exudate, Conj/sclera FB, Subconj hemorrhage, Corneal FB, Corneal abrasion, Corneal ulcer, Fluorescein uptake Results - Vitals Vitals: Vital Signs - 24 hr 06/13/20 06/13/20 06/13/20 20:05 20:07 21:28 Temperature 36.5 C 36.5 C 36.5 C Heart Rate 88 88 78 Respiratory 16 16 16 Rate Blood Pressure 144/86 H 144/86 H 132/78 H O2 Saturation 99 99 100 Oxygen O2 Source Room air PD MEDICAL DECISION MAKING - ED course Complexity details: considered differential, d/w patient ED course: no FB visualized left eye (cornea, sclera/conjunctiva, upper lower lids with eversion); this was performed with magnification (wood's lamp). Fluorescein instilled after proparacaine drop, and using wood's lamp, no fluorescein uptake left cornea nor conjunctiva/sclera Departure - Departure Disposition: 01 Home, Self Care Clinical Impression: Left eye injury Qualifiers: Encounter type: initial encounter Qualified Code(s): S05.92XA - Unspecified injury of left eye and orbit, initial encounter Condition: Good Instructions: ED Conjunctivitis Nonspecific Discharge Date/Time: 06/13/20 21:28
[2020-06-13 21:28] VITALS: BP 132/78
== END 2020-06-13 21:28 | disposition home or self-care (01) ==
LOC: ED 20:02
DX: S05.92XA Unspecified injury of left eye and orbit, initial encounter (principal); W22.8XXA Striking against or struck by other objects, initial encounter; Y93.89 Activity, other specified
CPT/HCPCS: 99282; J3490